=== PATIENT | female | born 1975 | race American Indian/Alaskan Native ===

== ENCOUNTER 2020-01-05 08:07 | Emergency (ER) | payer OTHER, SELFPAY ==
[2020-01-05 08:32] VITALS: BP 170/100; PULSE 98; RESP 18; TEMP 36.3; O2SAT 98; BMI 33.0
--- NOTE | 2020-01-05 08:50 | ED.HA ---
HPI - Headache General Chief Complaint: Headache Stated Complaint: headache Time Seen by Provider: 01/05/20 08:45 Source: patient Mode of arrival: ambulatory Limitations: no limitations History of Present Illness HPI Narrative: 44 y/o female with history HTN and migraine headaches who presents with headache x2 days. She states it feels like her typical migraines but it worse. She took motrin yesterday with slight improvement. She reports sensitivity to light and noise. She denies dizziness, weakness, numbness. She reports the pain starts in the back of her head and radiates to her entire head and described and throbbing. She denies vision changes, chest pain, SOB, fevers, stiff neck. MD elicited complaint: migraine Pertinent past history: migraines and hypertension Onset (ago): day(s) (3) Onset description: gradually Location: diffuse, down into neck and generalized Severity: similar to previous episodes Quality & Timing: throbbing Exacerbating factors: light and noise Relieving factors: rest and NSAIDs Context: occurred at rest Associated symptoms: nausea Treatments prior to arrival: none Related Data Previous Rx's Medication Instructions Recorded losartan 100 mg tablet 100 mg PO DAILY #30 tab 12/23/19 qghneizesc-tzpjbgotuwrbl-yscm 1 cap PO Q6H PRN #20 cap 01/05/20 [Fioricet] Allergies Allergy/AdvReac Type Severity Reaction Status Date / Time lisinopril Allergy Unknown leg edema, Unverified 02/02/19 00:00 leg swelling No Known Allergies Allergy Unverified 11/17/19 18:51 [No Known Allergies*] Review of Systems Review of Systems: Constitutional: No Fever, No Chills ENT/Mouth: No sore throat, No Rhinorrhea, No Swallowing Difficulty Eyes: No Eye Pain, No Swelling, No Redness Cardiovascular: No Chest Pain, No SOB, No Orthopnea, No Edema Respiratory: No Cough, No Sputum, No Wheezing, No dyspnea Gastrointestinal: + Nausea, No Vomiting, No Diarrhea, No abdominal Pain, No Hematochezia, No Melena Genitourinary: No Dysuria, No Urinary Frequency, No Hematuria Musculoskeletal: No joint pain, + Myalgias Skin: No Skin Lesions, No rash Neuro: No Weakness, No Numbness, No Dizziness, + Headache Psych: No Anxiety/Panic, No Depression Heme/Lymph: No Bruising, No Lymphadenopathy Endocrine: No Polyuria, No Polydipsia [facility] Past Medical History Attestation statement: The following information was validated with the patient. Medical History Asthma Fibromyalgia Headache HTN (hypertension) Social History Social History Alcohol intake: never Smoked in Last 30 Days: No Use of substances other than those prescribed or required for medical reasons: No Advance Directives: Yes Advance Directives Information Provided: No Advance Directives on File: No Physical Exam Vital Signs: Vital Signs: Vital Signs Temp Pulse Resp BP Pulse Ox 01/05/20 09:51 82 16 149/89 H 98 01/05/20 08:32 97.4 F 98 18 170/100 H 98 Body Mass Index 33.0 Appearance: Alert. Oriented X3. Appears uncomfortable. Eyes: Pupils equal, round and reactive to light. No nystagmus. ENT: Pharynx normal. Neck: Normal inspection. Neck supple. Occipital area tender at trapezius insertion site. Painless ROM. No cervical spinal tenderness. No nuchal rigidity. CVS: Normal heart rate and rhythm. Pulses normal. Respiratory: No respiratory distress. Breath sounds normal. Abdomen: Soft and nontender. +BS x4 Skin: Skin warm and dry. Normal skin color. Normal skin turgor. No rashes. Extremities: No lower extremity edema. Neuro: Oriented X 3. No motor deficit. No sensory deficit. Non-focal. Course Course Course Narrative: 44 y/o female presenting with migraine headache. Normal neurological exam. Will treat migraine with toradol, reglan and benadryl and reassess. Reevaluation(s) Reevaluation #1: Significant improvement after medications. She would like to go home and she is stable for discharge. She will follow up with her PCP. MDM - Headache Differential Diagnosis Differential diagnosis: Likely migraine, tension headache, subarachnoid hemorrhage, headache, meningitis and sinusitis Medical Records Attestation: I reviewed the patient's medical records. Critical Care Time Critical Care Time Critical Care Time: No Discharge Plan Discharge Clinical Impression: Migraine Qualifiers: Migraine type: with aura Status migrainosus presence: with status migrainosus Intractability: not intractable Qualified Code(s): G43.101 - Migraine with aura, not intractable, with status migrainosus Patient Disposition: Home, Self-Care Instructions: Migraine Headache (ED) Additional Instructions: Stay hydrated. Minimize stimulation and screen time today. Follow up with your Primary Care doctor next week. If your headache worsens or if you develop changes in vision, weakness, numbness, or difficulty walking call 911 or come back to the ER for further evaluation. Prescriptions: New fuqpfutnbs-byfvcfnevbaun-vlwa [Fioricet] 50-300-40 mg capsule 1 cap PO Q6H PRN (Reason: headache) Qty: 20 RF: 0 No Action losartan 100 mg tablet 100 mg PO DAILY Qty: 30 RF: 11
[2020-01-05] MEDS: Ketorolac Tromethamine 30 MG/ML VIAL IVPUSH (09:08)
[2020-01-05] MEDS: diphenhydrAMINE HCL 50 MG/ML VIAL 25 MG IVPUSH (09:08)
[2020-01-05] MEDS: 0.9 % Sodium Chloride 1,000 ML 999 ML IVCONT (09:08)
[2020-01-05] MEDS: Metoclopramide HCl 10 MG/2 ML VIAL IVPUSH (09:08)
[2020-01-05 09:51] VITALS: BP 149/89; PULSE 82; RESP 16; O2SAT 98
== END 2020-01-05 11:36 | disposition home or self-care (01) ==
PROVIDERS: Emergency Provider Emergency Medicine; PCP Internal Medicine
DX: G43.101 Migraine with aura, not intractable, with status migrainosus (principal); I10 Essential (primary) hypertension; Z79.899 Other long term (current) drug therapy
CPT/HCPCS: 96361; 96374; 96375; 99284; J1200; J1885; J2765

== ENCOUNTER 2020-04-29 11:02 | Emergency (ER) | payer OTHER, SELFPAY ==
[2020-04-29 11:05] VITALS: BP 203/122; PULSE 98; RESP 16; TEMP 36.2; O2SAT 100; BMI 33.2
[2020-04-29 12:31] VITALS: BP 174/98; PULSE 92; RESP 18; O2SAT 98
--- NOTE | 2020-04-29 13:16 | ED_ITS ---
HPI - General Adult General Chief complaint: Headache Stated complaint: HEADACHE,VOMITING Time Seen by Provider: 04/29/20 12:30 Source: patient Mode of arrival: ambulatory Limitations: language barrier (Patient speaks Sinhala as a first-line which, environmental protection specialist used to obtain information.) History of Present Illness HPI narrative: 44-year-old female who presents emergency department for evaluation of headache. The patient states that the headache came on suddenly this morning around 1:00 a.m.. She points to the back of her head when asked to localize the pain. She describes the pain as a pressure-like sensation which is constant and is 10/10. The patient had associated nausea and vomited. She states she has vomited 3-4 times. She denied numbness or weakness. She denied neck pain, fever, chills, cough, rhinorrhea. She states she is having some mild midepigastric burning which she attributes to anxiety. The patient states she does have a history of migraine headaches and has had severe headaches in the past requiring treatment in the emergency department. Related Data Previous Rx's Medication Instructions Recorded losartan 100 mg tablet 100 mg PO DAILY #30 tab 12/23/19 norjdbdhcs-grnyciqqhgusw-obvnmelh 1 tab PO Q6H PRN 30 Days #60 tab 03/20/20 50 mg-325 mg-40 mg tablet metoclopramide HCl [Reglan] 10 mg PO Q6H PRN #14 tab 04/29/20 Allergies Allergy/AdvReac Type Severity Reaction Status Date / Time lisinopril Allergy Unknown leg edema, Verified 03/20/20 07:58 leg swelling Review of Systems Review of Systems: Yes all other systems are reviewed and are negative Neurologic: Reports Abnormal speech present [facility] Past Medical History [facility] Narrative: The patient denies tobacco, alcohol and drug use. Medical History Abnormal Pap smear of cervix Asthma Fibromyalgia Headache HTN (hypertension) Uncontrolled hypertension Surgical History History of D&C Family History Family History Father Diabetes Hypertension Mother CVD (cardiovascular disease) Maternal Grandmother Cancer Maternal Aunt CVD (cardiovascular disease) Paternal Uncle CVD (cardiovascular disease) Sister Multiple sclerosis Social History Social History Alcohol intake: never Smoking Status: Never smoker Smoked in Last 30 Days: No Use of substances other than those prescribed or required for medical reasons: No Advance Directives: No Advance Directives Information Provided: No Physical Exam Vital Signs: Vital Signs: Last Vital Signs Temp 98.2 F 04/29/20 15:09 Pulse 83 04/29/20 15:09 Resp 17 04/29/20 15:09 BP 161/106 H 04/29/20 15:09 Pulse Ox 95 04/29/20 15:09 Body Mass Index 33.2 Const: General: cooperative and in distress moderate (Secondary to pain) Nutritional Appearance: overweight Orientation/consciousness: oriented to person and oriented to place Limitations: no limitations HENMT: Head: Yes normal to inspection, Yes normocephalic, Yes atraumatic and Yes other (Tenderness with palpation of the occipital area of the scalp, no hematomas ) Ears: external ears normal General nose exam: Normal external nose present Face and sinus: Yes normal facial exam Mouth: Normal oral and palatal mucosa present Throat: Yes posterior oropharynx normal Eyes: Periorbital: periorbital findings normal Eyelids: Yes eyelids normal Conjunctivae: conjunctivae normal Sclerae: sclerae normal Corneas: corneas normal Pupils: Equal, round and reactive pupils present Direct Ophthalmoscopy: normal light reflex Neck: Neck: Yes full ROM, Yes no lymphadenopathy, Yes no meningeal signs, Yes trachea midline and Yes supple Chest: Chest palpation & inspection: normal inspection of the chest and normal palpation of entire chest wall Resp: Effort & Inspection: normal respiratory effort and able to speak in complete sentences Auscultation: clear to auscultation bilaterally Cardio: Rate: regular rate Rhythm: regular rhythm Heart sounds: S1 normal heart sound present, S2 normal heart sound present and no murmurs GI: Inspection: Yes normal to inspection Palpation (GI): Soft to palpation, nontender, no guarding, not rigid and No hepatosplenomegaly present : General: Yes no CVA tenderness Back/Spine/Pelvis: Back: no CVA tenderness Cervical Spine: normal cervical lordosis Thoracic/Lumbar Spine: thoracic and lumbar spine normal to inspection Skin: Lesions: no lesions Rashes: no rashes Wounds: no wounds Neuro: General: oriented to person, oriented to place and no meningeal signs Cranial nerves: Yes CN's II-XII intact bilaterally and Yes Equal, round and reactive pupils present Cognition (Neuro): normal cognition Speech: Abnormal speech present Motor exam (neuro): 5/5 motor strength present throughout Extrem: General: Yes normal to inspection and Yes full ROM Psych: Appearance: well kempt Mental Status: mental status grossly normal Speech and movement: Normal speech and movement present Affect: normal affect Attitude: cooperative Thought process: Normal thought process present Thought content: Normal thought content present Course Course Course Narrative: 44-year-old female who presents emergency department for evaluation occipital headache which began at 1:00 a.m. on the day of arrival. The headache has been constant associated with nausea and vomiting. The patient has had similar severe migraines in the past however in a different location on her head, I do not think the patient has had an acute bleed at this time and I will treat her like it is a migraine headache. She was ordered to get Toradol 30 mg IV, Reglan 10 mg IV and Benadryl 50 mg IV. She was also ordered to get normal saline x1 L. 1552: The patient's headache improved with the above medication, she is currently pain-free. The patient was discharged home with the following migraine regimen: Excedrin migraine 1 pill orally, Benadryl 25 mg, 2 pills orally and Reglan (metoclopramide) 10 mg orally. She was given verbal and printed instructions. She was given a work note not return to work until 05/01/2020. Discharge Plan Discharge Clinical Impression: Migraine Patient Disposition: Home, Self-Care Instructions: Migraine Headache (ED) Additional Instructions: Take following medications together every 6 hours as needed for headache: Excedrin migraine, 1 pill Benadryl 25 mg, 2 pills Reglan (metoclopramide) 10 mg, 1 pill These medications will make you sleepy. After you take the medications, lie down in a dark quiet room. Do not drive or work if you take these medications. Follow-up with your doctor in 2 days. Please return to the emergency department if your symptoms get worse or if you develop any symptoms that are concerning to you. No work until 05/01/2020. Prescriptions: New metoclopramide HCl [Reglan] 10 mg tablet 10 mg PO Q6H PRN (Reason: nausea and vomiting) Qty: 14 RF: 0 No Action losartan 100 mg tablet 100 mg PO DAILY Qty: 30 RF: 11 ufamhorauf-ctluzkpokgami-ucgh 50-325-40 mg tablet 1 tab PO Q6H PRN (Reason: pain) 30 Days Qty: 60 RF: 0 Stand Alone Forms: Work/School Release
[2020-04-29] MEDS: 0.9 % Sodium Chloride 1,000 ML 999 ML IV (13:25)
[2020-04-29] MEDS: diphenhydrAMINE HCL 50 MG/ML VIAL IVPUSH (13:25)
[2020-04-29] MEDS: Metoclopramide HCl 10 MG/2 ML VIAL IVPUSH (13:25)
[2020-04-29] MEDS: Ketorolac Tromethamine 30 MG/ML VIAL IVPUSH (13:25)
--- NOTE | 2020-04-29 13:25 | PC.NURSE ---
iv inserted, pt medicated per order, vss, pad cutter nsr 80s-90s, will continue to monitor
[2020-04-29 15:09] VITALS: BP 161/106; PULSE 83; RESP 17; TEMP 36.8; O2SAT 95
--- NOTE | 2020-04-29 15:11 | PC.NURSE ---
patient sleeping, woke upon verbal stimulus, clinical research monitor nsr 80s-90s, pt continues to be hypertensive, pt states her headache is now a 2/10, will continue to montior.
== END 2020-04-29 16:15 | disposition home or self-care (01) ==
PROVIDERS: Emergency Provider Emergency Medicine Emergency Medical Services; PCP Internal Medicine
DX: G43.909 Migraine, unspecified, not intractable, without status migrainosus (principal); I10 Essential (primary) hypertension; Z79.899 Other long term (current) drug therapy
CPT/HCPCS: 96361; 96374; 96375; 99284; J1200; J1885; J2765

== ENCOUNTER → 2022-03-04 10:45 | Outpatient (BNVA) | payer OTHER, SELFPAY | PROVIDERS: PCP Internal Medicine; Visit Provider Nurse Practitioner Family | DX: Z13.89 Encounter for screening for other disorder (principal) ==

== ENCOUNTER → 2022-08-14 10:07 | Outpatient (BNVA) | payer OTHER, SELFPAY | PROVIDERS: Visit Provider Nurse Practitioner Family ==

== ENCOUNTER 2022-08-15 09:25 | Outpatient (REF) | payer OTHER, SELFPAY ==
[2022-08-15 09:49] LABS: MANUAL DIFF FLAG NO
[2022-08-15 11:02] LABS: Basophils Percent Auto 0.3 % (0-2); Eosinophils Absolute Auto 0.1 X10*3/uL (0.0-0.4); Eosinophils Percent Auto 1.5 % (0-4); Hematocrit 36.5 % (37.0-47.0); Hemoglobin 12.1 g/dl (12.0-16.0); Imm Gran Abs Auto 0.08 X10*3/uL (0.00-0.03); Imm Gran Pct Auto 0.9 % (0.0-0.4); Lymphocytes Absolute Auto 2.4 X10*3/uL (1.2-4.9); Lymphocytes Percent Auto 26.8 % (20-40); Mean Corpuscular HGB Conc 33.2 g/dl (31.0-35.0); Mean Corpuscular Hemoglobin 27.9 pg (27.0-33.0); Mean Corpuscular Volume 84.1 fL (80.0-98.0); Mean Platelet Volume 10.5 fL (9.4-12.3); Monocytes Absolute Auto 0.5 X10*3/uL (0.1-1.2); Neutrophils Absolute Auto 5.8 x10*3/uL (2.0-8.3); Neutrophils Percent Auto 64.5 % (45-73); Platelet Count 305 X10*3/uL (160-400); Red Blood Count 4.34 X10*6/uL (4.20-5.50); Red Cell Distribution Width 14.7 % (11.0-16.0); White Blood Count 8.9 X10*3/uL (4.8-10.8)
[2022-08-15 11:38] LABS: Erythrocyte Sedimentation Rate 20 MM/HR (0-20)
[2022-08-15 12:15] LABS: Alanine Aminotransferase 42 U/L (0-31); Albumin Level 4.2 g/dL (3.5-5.0); Alkaline Phosphatase 63 U/L (39-117); Anion Gap 15 (12-20); Aspartate Amino Transferase 32 U/L (5-31); Bilirubin Total 0.4 mg/dL (0.0-1.0); Blood Urea Nitrogen 14 mg/dL (9-16); Calcium 10.2 mg/dL (8.4-10.2); Carbon Dioxide 26 mmol/L (22-29); Chloride 104 mmol/L (96-108); Estimated Glomerular Filt Rate > 60; Glucose Random 93 mg/dL (60-115); Potassium 3.3 mmol/L (3.3-5.1); Sodium 142 mmol/L (135-145); Total Protein 7.6 g/dL (6.5-8.0)
[2022-08-15 12:21] LABS: Ferritin 47 ng/mL (10-250); TSH reflex Free T4 1.03 uIU/mL (0.32-4.0)
[2022-08-15 12:41] LABS: Folate > 20.0 ng/mL (> or = 4.0)
[2022-08-15 13:54] LABS: Vitamin B12 891 pg/mL (200-900)
[2022-08-20 17:39] LABS: CRP High Sensitivity >10.0 mg/L
== END 2022-08-15 09:26 | disposition home or self-care (01) ==
LOC: HO.LAB 09:25
PROVIDERS: Visit Provider Nurse Practitioner Family
DX: D64.9 Anemia, unspecified (principal); R20.2 Paresthesia of skin; R25.2 Cramp and spasm; R53.83 Other fatigue
CPT/HCPCS: 36415; 80053; 82550; 82607; 82728; 82746; 84443; 85025; 85652; 86141

== ENCOUNTER 2022-10-08 08:47 | Outpatient (REF) | payer OTHER, SELFPAY ==
--- NOTE | 2022-10-08 08:53 | EMG_ITS ---
Please see scanned EMG / Nerve Conduction Report. MTDD
== END 2022-10-08 08:48 | disposition home or self-care (01) ==
LOC: HO.NEURO 08:47
PROVIDERS: Visit Provider Nurse Practitioner Family
DX: R25.2 Cramp and spasm (principal); R20.2 Paresthesia of skin
CPT/HCPCS: 95860; 95885; 95907; 95913

== ENCOUNTER 2022-12-16 08:44 | Outpatient (AMB) | payer OTHER, SELFPAY ==
--- NOTE | 2022-12-16 09:04 | MHC.OFFVIS ---
Intake Vital Signs 12/16/22 09:17 Weight 188 lb BP 112/80 Blood Pressure Location Lt brachial Position Sitting Pulse 86 Pulse Source Pulse Oximeter Pulse Oximetry (%) 97 Oxygen Delivery Method Room Air Intake Visit Reasons: 4m follow up-Confirmed Intake Note: F/U Migraines and EEG results Maintenance Of Way Superintendent Required: Yes Maintenance Of Way Superintendent Name: Steffi Hernandez Allergies amitriptyline Allergy (Mild, Verified 12/16/22 09:05) Dizziness lisinopril Allergy (Unknown, Verified 12/16/22 09:05) leg edema, leg swelling topiramate [From Topamax] Adverse Reaction (Mild, Verified 12/16/22 09:05) Dizziness Medication List - Last Reconciled 12/16/22 by WHITNEY De La Fuente albuterol sulfate 90 mcg/actuation inhalation amlodipine 10 mg PO DAILY baclofen 5 mg PO BEDTIME 30 days zjqtisadvf-zmvilpmkjlaqx-lwnt 50-325-40 mg 1 tab PO Q6H PRN 30 days cholecalciferol (vitamin D3) 10 mcg PO DAILY fremanezumab-vfrm (Ajovy) 225 mg (1.5 mL) subcut ONCE 30 days magnesium oxide 400 mg PO BEDTIME 30 days mecobalamin (vitamin B12) 5,000 mcg PO DAILY metformin ER 2,000 mg PO BID rizatriptan 5 - 10 mg (0.5 - 1 x 10 mg) PO Q2H PRN 21 days sumatriptan succinate 50 - 100 mg orally at onset of headache, may repeat in 2 hrs PRN; max 2 tabs per day or 4 tabs/week (may take with Ibuprofen) 30 days triamterene-hydrochlorothiazid 37.5-25 mg tabs PO valsartan 320 mg PO QAM HPI HPI Comments History of Present Illness Details 46-yr-old female presents for f/u visit. Pt reports she is scheduled to have a breast cyst excision tomorrow- pt states is benign. She is having 2 migarine days per month which respond very well to rizatriptan. She never received Ajovy- and would like to hold starting it as her migraines have reduced significantly. Pt reports she continues to have cramps and creepy crawling sensation. Labs were overall WNL. However CK was elevated at 391 H. Ferritin 42- low norm. BLE EMG/NCS- normal Last Resulted Lab Tests 08/15/22 09:47 WBC 8.9 RBC 4.34 Hgb 12.1 Hct 36.5 L MCV 84.1 MCH 27.9 MCHC 33.2 RDW 14.7 Plt Count 305 MPV 10.5 Sodium 142 Potassium 3.3 Chloride 104 Carbon Dioxide 26 Anion Gap 15 BUN 14 Creatinine 0.76 Random Glucose 93 Calcium 10.2 Ferritin 47 Total Bilirubin 0.4 AST 32 H ALT 42 H Total Creatine Kin ase 391 H C-React Prot High Sens >10.0 H Total Protein 7.6 Albumin 4.2 Vitamin B12 891 Folate > 20.0 TSH 1.03 PFSH Medical History (Updated 12/16/22 @ 21:03 by WHITNEY De La Fuente) Anemia Fatigue History of Hodgkin's lymphoma Dysplasia of cervix, high grade SOCO 2 Depression Diabetes mellitus type 2, uncomplicated Lichen sclerosus Mild obstructive sleep apnea Abnormal Pap smear of cervix Uncontrolled hypertension Fibromyalgia Asthma HTN (hypertension) Headache Surgical History Hx of tubal ligation History of D&C Family History (Updated 12/16/22 @ 09:17 by Nohemy Cohn CMA) Father Diabetes Hypertension Mother High cholesterol Maternal Grandmother Cancer Maternal Aunt CVD (cardiovascular disease) Paternal Uncle CVD (cardiovascular disease) Sister Multiple sclerosis Social History (Updated 12/16/22 @ 09:17 by Nohemy Cohn CMA) Alcohol intake: never Patient Tobacco Use Status: Never used Tobacco Review of Systems Const All systems reviewed & are unremarkable except as noted in HPI and below Physical Exam Vital Signs: Last Vital Signs Pulse 86 12/16/22 09:17 BP 112/80 12/16/22 09:17 Pulse Ox 97 12/16/22 09:17 Oxygen Delivery Method Room Air 12/16/22 09:17 Const General: cooperative and no acute distress Orientation/consciousness: patient oriented x3 HEENT Head: Yes normocephalic Resp Effort & Inspection: normal respiratory effort and able to speak in complete sentences Neuro General: patient oriented x3, gait normal and CN's II-XI intact bilaterally Cognition (Neuro): normal cognition Motor exam (neuro): 5/5 motor strength present throughout Psych Appearance: grossly normal Mental Status: mental status grossly normal Speech and movement: Normal speech and movement present Affect: normal affect Attitude: cooperative Thought process: Normal thought process present Thought content: Normal thought content present Insight: Good insight present (Psych) Judgement: Good judgement present (Psych) Assessment & Plan Assessment & Plan (1) Migraine without aura: Code(s): G43.009 - Migraine without aura, not intractable, without status migrainosus (2) Restless leg syndrome: Code(s): G25.81 - Restless legs syndrome (3) Muscle cramps: Code(s): R25.2 - Cramp and spasm (4) Paresthesias: Code(s): R20.2 - Paresthesia of skin Plan For cramps/creepy crawling sensation: BLE EMG/NCS normal Elevated CK- will recheck today Low norm ferritin- pt advised to start ferrous sulfate 325mg qd w/ vit C. May use colace prn constipation. Recheck labs- iron studies 1-2 weeks before f/u appt. ? For acute headache treatment: Continue Rizatriptan 10mg tab, 1/2 - 1 tab (5-10mg) at onset of headache, may repeat in 2 hours. Max of 2 tabs (200mg) per 24 hours. May adjunct with OTC Tylenol 650mg q 4 hours, Ibuprofen (liquigel) 600mg q 6 hours, or Naproxen (liquigel) 440mg q 12 hrs prn. Previous acute migraine medication trials: Excedrin- not fully effective. Sumatriptan 50-100mg- ineffective. Acute migraine medication contraindications: None at this time ? For headache prevention medication: Pt stopped Riboflavin 400mg qam Magnesium 400mg qhs Hold Ajovy 225mg sc q month- pt does not feel migarine burden warrants use at this time. Previous migraine prevention medication trials: Topiramate- did not tolerate- caused dizziness. Amitriptyline- caused dizziness. Baclofen 5mg qhs- not tolerated. Migraine prevention medication contraindications: BBs d/t asthma dx f/u in 3-4 months or sooner prn Orders: Orders Creatine Kinase Total Today R25.2 - Cramp and spasm IRON PROFILE 3 Months D64.9 - Anemia, unspecified, R20.2 - Paresthesia of skin, R25.2 - Cramp and spasm Complete Blood Count Auto Diff 3 Months D64.9 - Anemia, unspecified, R20.2 - Paresthesia of skin, R25.2 - Cramp and spasm Comprehensive Met. Panel 3 Months D64.9 - Anemia, unspecified, R20.2 - Paresthesia of skin, R25.2 - Cramp and spasm Ferritin 3 Months D64.9 - Anemia, unspecified, R20.2 - Paresthesia of skin, R25.2 - Cramp and spasm Medications: New ascorbic acid (vitamin C) 500 mg PO DAILY 30 days 30 tabs 3RF docusate sodium (Colace) 100 mg PO BID 30 days PRN 60 caps 3RF constipation ferrous sulfate 325 mg PO DAILY 30 days 30 tabs 3RF Refilled rizatriptan max 2 tabs per day or 4 tabs per week 5 - 10 mg (0.5 - 1 x 10 mg) PO Q2H 21 days PRN 12 tabs 3RF migraine headache Coding Level of Care Code Est Pt Level 4 (58240) Diagnoses Migraine without aura G43.009 Restless leg syndrome G25.81 Muscle cramps R25.2 Paresthesias R20.2
[2022-12-16 09:17] VITALS: BP 112/80; PULSE 86; O2SAT 97
== END 2022-12-16 09:49 | disposition home or self-care (01) ==
PROVIDERS: Visit Provider Nurse Practitioner Family
DX: G43.009 Migraine without aura, not intractable, without status migrainosus (principal); G25.81 Restless legs syndrome; R20.2 Paresthesia of skin
CPT/HCPCS: 99214

== ENCOUNTER → 2022-12-16 08:44 | Outpatient (BNVA) | payer OTHER, SELFPAY | PROVIDERS: Visit Provider Nurse Practitioner Family | DX: R25.2 Cramp and spasm (principal); R20.2 Paresthesia of skin; R53.83 Other fatigue; D64.9 Anemia, unspecified ==